=== PATIENT | female | born 1960 ===

== ENCOUNTER 2017-05-20 07:02 | Day surgery (SDC) | payer OTHER ==
[2017-03-31 10:33] VITALS: BMI 40.8
[2017-05-20] MEDS ORDERED: Lactated Ringer's 500 ML IV ONE (09:26)
[2017-05-20] MEDS ORDERED: Lidocaine Hydrochloride 5 ML INJ ONE (09:29)
[2017-05-20] MEDS ORDERED: Propofol 10 mg/ml Inj (20 ML) ONE ×2 (09:29→09:39)
[2017-05-20] MEDS ORDERED: Lactated Ringer's 500 ML IV SCH (09:45)
[2017-05-20 10:01] VITALS: TEMP 98.5
[2017-05-20 10:39] VITALS: RESP 12; O2SAT 98
[2017-05-20 11:09] VITALS: BP 106/52; PULSE 87
== END 2017-05-20 11:06 | disposition home or self-care (01) ==
LOC: C.ENDO 07:02
PROVIDERS: ATTEND Internal Medicine Gastroenterology
DX: K22.70 Barrett's esophagus without dysplasia (principal); K44.9 Diaphragmatic hernia without obstruction or gangrene; E11.9 Type 2 diabetes mellitus without complications; I10 Essential (primary) hypertension
CPT/HCPCS: 43239; 82948; 88305; 88312; 88313; 88342; J2704; J7120